=== PATIENT | male | born 1945 | race Caucasian/White ===

== ENCOUNTER 2018-04-21 21:15 | Emergency (ER) | payer MEDICARE ==
[2018-04-21] MEDS ORDERED: HYDROcodone/Acetaminophen 10/325 mg Tablet ONE (22:58)
[2018-04-21 23:09] LABS: #Basophils 0.1 thou/uL (0.0-0.2); #Eosinphils 0.3 thou/uL (0.0-0.7); #Lymphocytes 2.2 thou/uL (1.20-3.40); #Monocytes 0.6 thou/uL (0.11-0.59); %Basophils 1.1 % (0.0-1.0); %Eosinophils 3.7 % (0.0-10.0); %Lymphocytes 26.6 % (21.0-51.0); %Monocytes 6.9 % (0.0-10.0); %Neutrophils 61.7 % (42.0-75.0); Hemoglobin 15.6 g/dL (14.0-18.0); Mean Corpuscular HGB CONC 33.6 g/dL (32.0-36.0); Mean Corpuscular Hemoglobin 32.5 pg (27.0-31.0); Mean Corpuscular Volume 96.8 fL (78.0-98.0); Mean Platelet Volume 6.7 fL (7.4-10.4); Platelet Count 235 thou/uL (130-400); Red Blood Cell (RBC) Count 4.79 mill/uL (4.70-6.10); White Blood Cell (WBC) Count 8.1 thou/uL (4.8-10.8)
[2018-04-21 23:37] LABS: PTT 29.6 SEC (22.9-36.1); Prothrombin Time 12.9 SEC (12.0-14.7)
== END 2018-04-22 00:14 | disposition home or self-care (01) ==
LOC: ERS 21:15
DX: T63.061A Toxic effect of venom of other North and South American snake, accidental (unintentional), initial encounter (principal)
CPT/HCPCS: 36415; 85025; 85384; 85610; 85730; 99283